=== PATIENT | male | born 1935 | race Caucasian/White ===

== ENCOUNTER 2017-05-13 11:07 | Emergency (ER) | payer MEDICARE ==
[2017-05-13 13:49] LABS: ABS Basophils 0.1 10^3/ul (0-0.2); ABS Eosinophils 0.1 10^3/ul (0-0.6); ABS Lymphocytes 1.2 10^3/ul (1.0-4.8); ABS Neutrophils 8.9 10^3/ul (1.5-7.7); ABS Nucleated RBC 0 10^3/ul; Eosinophil % 0.8 % (0-6); Hematocrit 31 % (42-52); Hemoglobin 9.9 g/dl (14.0-18.0); Lymphocyte % 10.6 % (25-47); Mean Corpuscular HGB Conc 32 g/dl (31-36); Mean Corpuscular Hemoglobin 25 pg (27-31); Mean Corpuscular Volume 78 fL (80-94); Mean Platelet Volume 7 um3 (7.4-10.4); Nucleated Red Blood Cells % 0; Platelet Count 250 10^3/ul (150-450); Red Blood Count 4.01 10^6/ul (4.0-5.4); Red Cell Distribution Width 20 % (10.5-15); White Blood Count 11.2 10^3/ul (3.5-10.8)
[2017-05-13 14:04] LABS: EGFR Non-African American 70.3 (>60)
[2017-05-13 14:06] LABS: INR 3.3 (0.77-1.02)
[2017-05-13 15:16] VITALS: BP 110/84
--- NOTE | 2017-06-01 17:44 | ED ---
Alexandre Hay Gabriel, scribed for Thomas Sherwood MD on 05/13/17 at 1236 . Lower Extremity - HPI Summary HPI Summary: This patient is a 81 year old M presenting to [facility] accompanied by with a chief complaint of LLE pain since 4 days ago. The patient rates the pain 9/10 in severity. Symptoms aggravated by movement. Patient reports erythema and swelling. Patient denies ankle pain. Patient states the symptoms started in his ankle and spread up to his knee on the left lower extremity. He saw his PCP and was Dx with gout and has been taking medications for it but it has not helped significantly. He denies any trauma, broken skin, or athletes foot. Patient denies any history of DVT's and PE's. - History of Current Complaint Chief Complaint: EDExtremityLower Stated Complaint: LEFT LEG PAIN Hx Obtained From: Patient Onset of Pain: Days - 4 Onset/Duration: Still Present Severity Initially: Moderate Severity Currently: Moderate Pain Intensity: 9 Pain Scale Used: 0-10 Numeric Timing: Constant Associated Signs And Symptoms: Positive: Swelling, Redness, Knee Pain Aggravating Factor(s): Movement Able to Bear Weight: Yes - Allergies/Home Medications Allergies/Adverse Reactions: Allergies Allergy/AdvReac Type Severity Reaction Status Date / Time bee Allergy Severe Anaphylatic Uncoded 05/13/17 11:26 Shock PMH/Surg Hx/FS Hx/Imm Hx Previously Healthy: No Endocrine/Hematology History: Reports: Hx Anticoagulant Therapy Cardiovascular History: Reports: Hx Atrial Fibrillation, Hx Coronary Artery Disease, Hx Hypercholesterolemia, Hx Hypertension, Hx Pacemaker/ICD, Other Cardiovascular Problems/Disorders - paroxysmal VT Respiratory History: Reports: Hx Sleep Apnea - hx of mild-moderate EBRTO 2008, needs equipment set up GI History: Reports: Hx Diverticulosis, Other GI Disorders - colon polyps, inguinal hernia History: Reports: Hx Benign Prostatic Hyperplasia Musculoskeletal History: Reports: Hx Back Problems - pain - Surgical History Surgery Procedure, Year, and Place: 11/2008 pacemaker Infectious Disease History: No Infectious Disease History: Denies: Traveled Outside the [place] in Last 30 Days - Family History Known Family History: Positive: Hypertension Negative: Diabetes, Seizure Disorder - Social History Lives: With Family Alcohol Use: Daily Alcohol Amount: "couple drinks a day; wine or beer, sometimes whiskey and soda" Substance Use Type: Reports: None Smoking Status (MU): Former Smoker Review of Systems Negative: Fever, Chills Musculoskeletal: Negative - left ankel Positive: Other - pain, redness, and swelling in LLE All Other Systems Reviewed And Are Negative: Yes Physical Exam - Summary Physical Exam Summary: Appearance: Well-appearing, Well-nourished Skin: Warm, Dry, No rash Eyes: Normal, PERRL, EOMI, sclera anicteric ENT: Normal Neck: Supple, nontender Respiratory: Clear to auscultation Cardiovascular: S1, S2, Afib, irregularly irregular rhythm Abdomen: Soft, nontender, no organomegaly Bowel sounds: Present Musculoskeletal: Normal, Strength/ROM Intact, no edema, pulses symmetrical, inguinal symmetry with no lymphadenopathy, there is swelling from the knee down on the left hand side with redness. There is no break in the skin even between the toes. Pulses decreased on the left LLE and there is no tenderness in the posterior calf. Neurological: Normal, A&Ox3, cranial nerves II-XII WNL, follows commands, gait not tested, sensation intact to pin and light touch Psychiatric: affect normal, behavior appropriate, dressed appropriately, judgment intact Triage Information Reviewed: Yes Vital Signs On Initial Exam: Initial Vitals Temp Pulse Resp BP Pulse Ox 97.8 F 72 15 136/65 96 05/13/17 11:24 05/13/17 11:24 05/13/17 11:24 05/13/17 11:24 05/13/17 11:24 Vital Signs Reviewed: Yes Diagnostics - Vital Signs Vital Signs Temp Pulse Resp BP Pulse Ox 05/13/17 12:05 68 98 05/13/17 12:03 141/61 05/13/17 11:24 97.8 F 72 15 136/65 96 - Laboratory Result Diagrams: 05/13/17 13:39 05/13/17 13:39 Lab Statement: Any lab studies that have been ordered have been reviewed, and results considered in the medical decision making process. - EKG 1247 Cardiac Rate: NL EKG Rhythm: Atrial Fibrillation - at 68 BPM Lower Extremity Course/Dx - Course Assessment/Plan: This patient is a 81 year old M presenting to [facility] accompanied by with a chief complaint of LLE pain since 4 days ago. The patient rates the pain 9/10 in severity. Symptoms aggravated by movement. Patient reports erythema and swelling. Patient denies ankle pain. Patient states the symptoms started in his ankle and spread up to his knee on the left lower extremity. He saw his PCP and was Dx with gout and has been taking medications for it but it has not helped significantly. He denies any trauma, broken skin, or athletes foot. An EKG reveals AFIB. Test results with no significant abnormalities except for a WBC of 11.2. Patient will be diagnosed with cellulitis and sent home. Patient will be discharged with prescription for Cephalexin and amlodipine and follow up from Dr. Lr. The patient is agreeable with this plan. - Diagnoses Provider Diagnoses: Cellulitis Discharge - Discharge Plan Condition: Good Disposition: HOME Prescriptions: amLODIPine TAB* [Norvasc 5 mg TAB*] 5 mg PO DAILY 10 Days #10 tab Cephalexin CAP* [Keflex CAP*] 500 mg PO TID 7 Days #21 cap Patient Education Materials: Cellulitis (ED) Referrals: Dillon Lr MD [Primary Care Provider] - Additional Instructions: need follow up protime in 3 days. The documentation as recorded by the Alexandre corbett Gabriel accurately reflects the service I personally performed and the decisions made by me, Thomas Sherwood MD.
== END 2017-05-13 15:15 | disposition home or self-care (01) ==
LOC: ED 11:07
DX: L03.90 Cellulitis, unspecified (principal); M25.562 Pain in left knee; Z79.01 Long term (current) use of anticoagulants; Z87.891 Personal history of nicotine dependence
CPT/HCPCS: 36415; 80053; 84550; 85025; 85610; 93005; 99282

== ENCOUNTER 2018-12-22 12:19 | Emergency (ER) | payer MEDICARE ==
[2018-12-22] MEDS ORDERED: Fluorescein Sodium TOPICAL* 1 MG TEST STRIP OPHTHALMIC ONE (12:58)
[2018-12-22 13:04] VITALS: BP 144/73
--- NOTE | 2018-12-22 13:44 | UC ---
Eye Complaint HPI - HPI Summary HPI Summary: Patient presents to urgent care with his . Patient states yesterday he woke up with no complaints. Patient states last evening he felt an itch by his eye. Patient states he can feel like there was a foreign body in his eye. Patient states subsequent to rubbing it he notices high was all "bloodshot" per his this has continued tonight. May be increased a little bit. Patient does not have a foreign body sensation. Patient does not feel like there is anything in his eye. Patient does not have any vision changes. Patient doesn' t have any eye pain. Patient have any photophobia. Patient have a headache. No trauma. Patient is on several so. Patient does not wear contact lenses but does wear corrective eyeglasses. Patient wanted to get it looked at just because it "looks bad". Patient has never had eye surgery. Last eye exam > 1 year. Pt does not recall name of optho - previously pt of Dr. Whitley several years ago Patient medications reviewed this visi - History of Current Complaint Chief Complaint: UCEye Stated Complaint: EYE COMPLAINT Time Seen by Provider: 12/22/18 13:09 Hx Obtained From: Patient Severity Initially: Mild Severity Currently: Mild Pain Intensity: 1 Pain Scale Used: 0-10 Numeric Location of Injury: Conjunctiva - Allergies/Home Medications Allergies/Adverse Reactions: Allergies Allergy/AdvReac Type Severity Reaction Status Date / Time bee Allergy Severe Anaphylatic Uncoded 12/22/18 12:53 Shock PMH/Surg Hx/FS Hx/Imm Hx Previously Healthy: Yes - on xarelto "I have a pacemaker" Endocrine History: Dyslipidemia Cardiovascular History: Hypertension, Pacemaker/ICD Other History Of: Anticoagulant Therapy - Surgical History Surgical History: Yes Surgery Procedure, Year, and Place: 11/2008 pacemaker - Social History Alcohol Use: Daily Alcohol Amount: 2.5 glasses wine/ day Substance Use Type: None Smoking Status (MU): Former Smoker Review of Systems All Other Systems Reviewed And Are Negative: Yes Constitutional: Positive: Negative Skin: Positive: Negative Eyes: Positive: Eye Redness. Negative: Blurred Vision, Diplopia, Drainage, Photophobia ENT: Positive: Negative Respiratory: Positive: Negative Cardiovascular: Positive: Negative Gastrointestinal: Positive: Negative Genitourinary: Positive: Negative Motor: Positive: Negative Neurovascular: Positive: Negative Musculoskeletal: Positive: Negative Neurological: Positive: Negative Is Patient Immunocompromised?: No Physical Exam - Summary Physical Exam Summary: Vital Signs Reviewed: Yes A+Ox3, no distress Eyes: JORDYN, EOM intact and full, left eye: subconjunctival hemorrhage left eye inferior and upper outer quadrants, no photophobia, + fundoscopic margins visualized, no papilledema, everted lids - no foreign body, evaluated with fluoroscene - no uptake mmoist no exudate, no erythema Neck: Positive: Supple Respiratory: Positive: No respiratory distress, No accessory muscle use + CTA throughout no w/r Cardiovascular: RRR nl s1, s2 no m/r CBT <2 sec, no temporal artery pain with palp abd soft + BS nt/nd no guarding, no distension Musculoskeletal Exam: NEVES x 4 without difficulty Strength Intact, ROM Intact Neurological: Positive: Alert, + sensation throughout Psychological: Positive: Normal 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 Pt states he felt like something in eye and briefly rubbed No pain, vision changes, headache, photophobia, trauma Pt is on xarelto VSS Pt with left eye subconjunctival hemorrhage exam is otherwise nonconcerning visual acuity 20/50 each eye - did not have glasses on I spoke with Dr. Whitley - Okay for pt to be discharge with f/u Monday no concern involves 3 quadrants Pt will call Monday strict return precautions discussed pt and spouse comfortable and in agreement with plan slight increased BP - history of same - Differential Dx/Diagnosis Provider Diagnosis: Subconjunctival hemorrhage of left eye Discharge - Sign-Out/Discharge Documenting (check all that apply): Patient Departure All imaging exams completed and their final reports reviewed: No Studies - Discharge Plan Condition: Stable Disposition: HOME Patient Education Materials: Subconjunctival Hemorrhage (ED) Referrals: Dillon Lr MD [Primary Care Provider] - Juan M Whitley MD [Medical Doctor] - Additional Instructions: - Avoid rubbing, itching your eye - If your eye feels dry, okay to use artificial tears in the affected eye - It is recommended you schedule a recheck with the research computing specialist on Monday- you can contact Dr. Whitley or your research computing specialist- call on Monday morning - first thing -if you develop pain, vision changes, headache, confusion or ANY other concerns it is recommended you got directly to the emergency department for a re- evaluation and further testing - the reddness may take 2 weeks to resolve completely - Billing Disposition and Condition Condition: STABLE Disposition: Home
== END 2018-12-22 13:50 | disposition home or self-care (01) ==
LOC: UCEAST 12:19
DX: H11.32 Conjunctival hemorrhage, left eye (principal); Z95.0 Presence of cardiac pacemaker; I10 Essential (primary) hypertension; Z87.891 Personal history of nicotine dependence
CPT/HCPCS: 99211; A9270-GY; G0463

== ENCOUNTER 2019-09-09 14:25 | Observation (INO) | payer MEDICARE ==
[2019-09-09] MEDS ORDERED: NS 0.9% 1000 ML** 1,000 ML IV ONE (14:41)
[2019-09-09 15:01] LABS: ABS Basophils 0.1 10^3/ul (0-0.2); ABS Eosinophils 0.3 10^3/ul (0-0.6); ABS Lymphocytes 1.2 10^3/ul (1.0-4.8); ABS Monocytes 0.7 10^3/ul (0-0.8); ABS Neutrophils 4.9 10^3/ul (1.5-7.7); Eosinophil % 3.8 %; Hematocrit 32 % (42-52); Hemoglobin 10.6 g/dL (14.0-18.0); Lymphocyte % 16.7 %; Mean Corpuscular HGB Conc 33 g/dL (31-36); Mean Corpuscular Hemoglobin 28 pg (27-31); Mean Corpuscular Volume 84 fL (80-94); Mean Platelet Volume 7.5 fL (7.4-10.4); Platelet Count 133 10^3/uL (150-450); Red Blood Count 3.76 10^6 /uL (4.18-5.48); Red Cell Distribution Width 19 % (10-15); White Blood Count 7.1 10^3/uL (3.5-10.8)
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
[2019-09-09 15:20] LABS: ALT 21 U/L (7-52); AST 25 U/L (13-39); Albumin 3.9 g/dL (3.2-5.2); Albumin/Globulin Ratio 1.4 (1-3); Alkaline Phosphatase 163 U/L (34-104); Anion Gap 10 mmol/L (2-11); BUN/Creatinine Ratio 25.3 (8-20); Blood Urea Nitrogen 47 mg/dL (6-24); CO2 Carbon Dioxide 29 mmol/L (22-32); Chloride 106 mmol/L (101-111); EGFR African American 42.3 (>60); Globulin 2.8 g/dL (2-4); Glucose 87 mg/dL (70-100); Magnesium 2.3 mg/dL (1.9-2.7); Potassium 3.9 mmol/L (3.5-5.0); Sodium 145 mmol/L (135-145); Total Protein 6.7 g/dL (6.4-8.9)
[2019-09-09 15:21] LABS: Troponin I 0.04 ng/mL (<0.03)
[2019-09-09 15:44] LABS: INR 1.56 (0.82-1.09)
[2019-09-09 16:24] LABS: Urine Appearance Clear; Urine Bilirubin Negative (Negative); Urine Blood Negative (Negative); Urine Color Yellow; Urine Glucose Negative (Negative); Urine Ketones Negative (Negative); Urine Nitrite Negative (Negative); Urine Protein Negative (Negative); Urine Specific Gravity 1.009 (1.010-1.030); Urine Urobilinogen Negative (Negative)
[2019-09-09] MEDS ORDERED: Nitroglycerin TAB 0.4 MG* 0.4 MG TAB SL PRN (16:53)
[2019-09-09] MEDS ORDERED: traMADol TAB* 50 MG PO PRN (16:53)
[2019-09-09] MEDS ORDERED: Aspirin 81 mg CHEW TAB* 81 MG TAB.CHEW PO ONE (17:22)
--- NOTE | 2019-09-09 17:35 | HP ---
History of Present Illness - History of Present Illness Reason for Visit: dizziness, diplopia, gait instability History of Present Illness: Prem Ivory is a 83 y/o male with complicated medical history including Afib on rivaroxaban, sick sinus syndrome s/p pacer, CAD, COPD, BERTO on CPAP, presented to [facility] for recurrent dizziness and unstable gait since last night, and one episode of diplopia. He was in his usual health until yesterday when he had 30min episode of dizziness and resolved on it own. Similar episode recurred this morning, and lasted for 15min, again it got better on its own. He was sent in today as he was spotted by police [place] [facility]. He went to cook for a walk with his this afternoon basically. On his way to the park, he felt dizzy again, he saw two identical cars coming into his linnea, it was laying out horizontally, no spliting of the car.When the car passed by to his left side, he realized that it was only one car. He recalled the whole episode lasted for about 5mins. He did feel imbalance when this happened, but he could still hold his steering wheel steadily, and drove to the park. When he came down walking, he felt stumbling, and his told him that he was not stable on his feet. He denied any weakness or numbness or speech abnormalities. When I saw him in ED, he felt well, no more dizziness or unsteadiness. He recently drove back from [place] 3 weeks ago, no respiratory symptoms, no fever, no positive COVID19 contact. In ED. he had negative CXR, CT brain unremarkable other than left sphenoid sinus mucous thickening. - Past Medical History Past Medical History: 1. Afib on Rivaroxaban 2. sick sinus syndrome s/p pacemaker 2008 3. HFpEF with TR, MR and pulmonary hypertension 4. h/o PSVT 5. CAD, borderline LAD lesion, 60-70% proximal to mild stenosis 6. COPD 7. HLD 8. BERTO on CPAP 9. - Past Surgical History Past Surgical History: 1. Pacemaker insertion November 2008 2. Right inguinal hernia repair October 2018 - Past Family History Past Family History: Father and brother both have lung cancer. Mother lives till age 105. - Past Social History Past Social History: Lives with her locally mainly, usually spends 3 months in [facility] every year. 4 kids, 2 kids locally. 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 non smoker, drank 2-3 glasses of wine every day, last drink this noon. No drug use. He would like full code for this hospitalization. His Celine will be his surrogate decision maker, her number [phone]. Medications: Home Medications Medication Instructions Recorded Confirmed Type Calcium Carbonate [Calcium] 600 mg PO DAILY 06/05/13 09/09/19 History Simvastatin [Zocor 40 MG (NF)] 40 mg PO BEDTIME 06/05/13 09/09/19 History Losartan Potassium [Cozaar] 100 mg PO DAILY 05/23/16 09/09/19 History Rivaroxaban TAB(*) [Xarelto 20 mg] 20 mg PO DAILY 05/24/17 09/09/19 History Tramadol 50 MG # 6 TAB PREPAK 50 mg PO Q8H PRN MDD 3 tabs 05/24/17 09/09/19 History amLODIPine TAB* [Norvasc 5 mg TAB*] 5 mg PO DAILY 12/04/18 09/09/19 History Cyanocobalamin TAB* [Vitamin B12 1,000 mcg PO DAILY 12/24/18 09/09/19 History TAB*] Metoprolol Succinate XL TAB* 50 mg PO QPM 12/24/18 09/09/19 History [Toprol XL TAB*] Multivitamins/Minerals TAB* 1 tab PO DAILY 12/24/18 09/09/19 History [Theragran/minerals TAB*] Nitroglycerin TAB 0.4 MG* 0.4 mg SL Q5M PRN 12/24/18 09/09/19 History Spironolactone TAB* [Aldactone 25 mg PO DAILY 12/24/18 09/09/19 History TAB*] Terbinafine HCl [Athletes Foot AF 1 applic TOPICAL BID PRN 12/24/18 09/09/19 History Cream] Tiotropium CAPSULE (NF) [Spiriva 1 cap.inh INH DAILY 01/08/19 09/09/19 History CAP.INH*] Ferrous Sulfate TAB* 325 mg PO DAILY 09/09/19 09/09/19 History Gabapentin CAP(*) [Neurontin 100 100 - 200 mg PO BEDTIME 09/09/19 09/09/19 History mg CAP(*)] Torsemide TAB* [Demadex*] 40 mg PO BID 09/09/19 09/09/19 History Allergies/Adverse Reactions: Allergies Allergy/AdvReac Type Severity Reaction Status Date / Time bee pollen Allergy Anaphylatic Verified 04/26/19 11:28 Shock bee venom protein (honey bee) Allergy Anaphylatic Verified 04/26/19 11:28 Shock Review of Systems - Review of Systems Constitutional: Negative: Fever, Chills, Sweats, Weakness, Malaise, Other Eyes: Positive: Other - Diplopia lasting for a few seconds ENT: Negative: Ear Pain, Ear Discharge, Nose Pain, Nose Discharge, Nose Congestion, Mouth Pain, Mouth Swelling, Throat Pain, Throat Swelling, Other Respiratory: Negative: Cough, Dry, Shortness of Breath, Hemoptysis, SOB with Excertion, Pleuritic Pain, Sputum, Wheezing Cardiovascular: Positive: Other - dizzy. Negative: Chest Pain, Palpitations, Orthopnea, Paroxysmal Noc. Dyspnea, Edema, Light Headedness Gastrointestinal: Negative: Nausea, Vomiting, Abdominal Pain, Diarrhea, Constipation, Melena, Hematochezia, Other Genitourinary: Negative: Dysuria, Frequency, Incontinence, Hematuria, Retention , Other Musculoskeletal: Negative: Neck Pain, Shoulder Pain, Arm Pain, Back Pain, Hand Pain, Leg Pain, Foot Pain, Other Skin: Negative: Rash, Lesions, Masood, Bruising, Other Neurological/Mental Status: Positive: Incoordination, Other - stumbling, imbalance. Negative: Weakness, Numbness, Change in Speech, Confusion, Seizures Exam Vital Signs: Vital Signs (72 hours) 09/09/19 09/09/19 09/09/19 14:33 14:35 14:36 Temperature 98.7 F Pulse Rate 70 70 70 Respiratory 18 18 21 Rate Blood Pressure 122/71 116/66 (mmHg) O2 Sat by Pulse 94 95 95 Oximetry 09/09/19 09/09/19 09/09/19 15:00 15:05 15:35 Temperature Pulse Rate 70 64 63 Respiratory 19 21 20 Rate Blood Pressure 125/59 131/65 (mmHg) O2 Sat by Pulse 95 Oximetry 09/09/19 09/09/19 09/09/19 16:00 16:05 16:35 Temperature Pulse Rate 61 68 Respiratory 17 22 24 Rate Blood Pressure 138/75 126/81 (mmHg) O2 Sat by Pulse Oximetry 09/09/19 16:44 Temperature Pulse Rate Respiratory Rate Blood Pressure (mmHg) O2 Sat by Pulse 94 Oximetry Result Diagrams: 09/09/19 14:53 09/09/19 14:53 Additional Lab and Data: Lab Results 09/09/19 Range/Units 14:53 WBC 7.1 (3.5-10.8) 10^3/uL RBC 3.76 L (4.18-5.48) 10^6 /uL Hgb 10.6 L (14.0-18.0) g/dL Hct 32 L (42-52) % MCV 84 (80-94) fL MCH 28 (27-31) pg MCHC 33 (31-36) g/dL RDW 19 H (10-15) % Plt Count 133 L (150-450) 10^3/uL MPV 7.5 (7.4-10.4) fL Neut % (Auto) 68.7 % Lymph % (Auto) 16.7 % [place] % (Auto) 9.7 % Eos % (Auto) 3.8 % Baso % (Auto) 1.1 % Absolute Neuts (auto) 4.9 (1.5-7.7) 10^3/ul Absolute Lymphs (auto) 1.2 (1.0-4.8) 10^3/ul Absolute Monos (auto) 0.7 (0-0.8) 10^3/ul Absolute Eos (auto) 0.3 (0-0.6) 10^3/ul Absolute Basos (auto) 0.1 (0-0.2) 10^3/ul Absolute Nucleated RBC 0.0 10^3/ul Nucleated RBC % 0.0 EKG Data: EKG: no p wave, accelerated borderline rhythm.T wave inversion inferior leads ( II, III, aVF), V4-5, it's deeper compared with previous ekg Assessment/Plan - Assessment/Plan Assessment: Prem Ivory is a 83 y/o male with complicated medical history including Afib on rivaroxaban, sick sinus syndrome s/p pacer, CAD, COPD, presented to [facility] with recurrent dizziness, diplopia, unsteady gait within last 1 day, found his symptoms self resolved and normal neurological examination, CT brain negative. He will be admitted to [facility] for close monitoring. Plan: 1. Recurrent dizziness, diplopia, unsteady gait TRO stroke - In view of his recurrent episode, self resolving neurological sxs , TIA is most likely, stroke needs to be ruled out - other DD including vertebral insufficiency, diabetic related diplopia, cardiogenic causes, hypotension - MRI brain, however we need to trace his pacer info - US carotid including vertebral artery us - add on aspirin on top of his anticoagulation - I contacted Dr. Welch neurologist circulation sales representative, who agrees with adding aspirin, and suggests to do MRI brain+ MRA; if his kidney function doesn't allow, US carotid could be alternative - already on simvastatin, last LDL 40+ in 2019 - neuro check Q6h - check A1c, lipids - PT assessment tomorrow 2. elevated troponin - EKG: T wave inversion inferior leads (II, III, aVF), V4-5, it's deeper compared with previous ekg - no chest pain, palpitation - likely due to underlying HFpEF and regurgitation - we will repeat one in 6 hours 3. thrombocytopenia - mild, will trend 4. HFpEF - continue torsemide 40mg bid, spironalactone, losartan, metoprol - not fluid overloaded 5. Afib - continue anticoagulation and metoprol 6. Sick sinus syndrome s/p pacer - not on pacer rhythm. - pacer check in view of recurrent dizziness 7. BERTO - continue CPAP in hospital at night 8. COPD - continue 9. HTN - continue home med metoprolol, losartan, torsemide - watch bp in hospital 10. chronic back pain - continue prn tramadol 11. alcohol use disorder - patient seems taking more alcohol than he told us, not really intoxicated now - last alcohol this noon - will check alcohol level 12. DVT prophylaxis - not needed as on anticoagulation Attestation Documenting Resident: Amber Malin Supervising Physician: Andres Chapa Attending/Supervising Physician Comment: Pt seen and examined. Agree with plan as outlined by Dr. Malin here. Suspected TIA. Work up will be limited by PPM. Will check carotid US, agree with neuro c/s, ASA. Checking etoh lvl and interrogate his PPM. Attestation: This service has been performed in part by a resident under the direction of a teaching physician.I, Andres Chapa, performed the service, or was physically present during the critical, or joaquin portions of the service, furnished by the resident. I participated in the management of the patient.
[2019-09-09 17:55] LABS: Alcohol 22 mg/dL (<10)
[2019-09-09] MEDS ORDERED: Metoprolol Succinate XL TAB* 25 MG PO SCH (18:00)
[2019-09-09] MEDS: Torsemide TAB* 20 MG PO SCH (20:42)
[2019-09-09] MEDS ORDERED: Atorvastatin* 20 MG TAB PO SCH (21:00)
[2019-09-09] MEDS ORDERED: Gabapentin CAP(*) 100 MG PO SCH (21:00)
[2019-09-09 21:16] LABS: Troponin I 0.04 ng/mL (<0.03)
[2019-09-10 06:02] LABS: ABS Basophils 0.1 10^3/ul (0-0.2); ABS Eosinophils 0.3 10^3/ul (0-0.6); ABS Lymphocytes 1.3 10^3/ul (1.0-4.8); ABS Monocytes 0.8 10^3/ul (0-0.8); ABS Neutrophils 3.4 10^3/ul (1.5-7.7); Eosinophil % 5.8 %; Hematocrit 31 % (42-52); Hemoglobin 10.2 g/dL (14.0-18.0); Lymphocyte % 22.4 %; Mean Corpuscular HGB Conc 33 g/dL (31-36); Mean Corpuscular Hemoglobin 28 pg (27-31); Mean Corpuscular Volume 85 fL (80-94); Mean Platelet Volume 7.8 fL (7.4-10.4); Nucleated Red Blood Cells % 0.1; Platelet Count 122 10^3/uL (150-450); Red Blood Count 3.69 10^6 /uL (4.18-5.48); Red Cell Distribution Width 18 % (10-15); White Blood Count 5.9 10^3/uL (3.5-10.8)
[2019-09-10 06:19] LABS: HDL Cholesterol 63.3 mg/dL
[2019-09-10 06:33] LABS: TSH (Thyroid Stimulating Horm) 2.2 mcIU/mL (0.34-5.60)
[2019-09-10] MEDS ORDERED: Multivitamins/Minerals TAB PO SCH (09:00)
[2019-09-10] MEDS ORDERED: Cyanocobalamin TAB* 500 MCG PO SCH (09:00)
[2019-09-10] MEDS ORDERED: Rivaroxaban TAB(*) 20 MG TAB PO SCH (09:00)
[2019-09-10] MEDS ORDERED: amLODIPine TAB* 5 MG PO SCH (09:00)
[2019-09-10] MEDS ORDERED: Calcium Carbonate TAB* 1250 MG (CALCIUM 500 MG) PO SCH (09:00)
[2019-09-10] MEDS ORDERED: Ferrous Sulfate TAB* 325 MG PO SCH (09:00)
[2019-09-10] MEDS ORDERED: Spironolactone TAB* 25 MG PO SCH (09:00)
[2019-09-10] MEDS ORDERED: Losartan TAB* 25 MG PO SCH (09:00)
--- NOTE | 2019-09-10 09:50 | PN ---
Subjective Date of Service: 09/10/19 Interval History: I noticed that his MRI was cancelled. I talked to MRI room nurse, I was told no other pacemaker brand other than [employer] will be allowed in this hospital as they need company person to come in and turn off pacer before MRI. Patient was doing well overnight, no dizziness, no more diplopia. I explained to him his blood test results. Objective Active Medications: Amlodipine Besylate (Norvasc Tab*) 5 mg PO DAILY [facility] Atorvastatin Calcium (Lipitor*) 40 mg PO BEDTIME [facility] Last Admin: 09/09/19 20:42 Dose: 40 mg Calcium Carbonate (Calcium Carbonate Tab*) 625 mg PO DAILY [facility] Cyanocobalamin (Vitamin B12 Tab*) 1,000 mcg PO DAILY [facility] Ferrous Sulfate (Ferrous Sulfate Tab*) 325 mg PO DAILY [facility] Gabapentin (Neurontin Cap(*)) 100 mg PO BEDTIME [facility] Last Admin: 09/09/19 20:43 Dose: 100 mg Losartan Potassium (Cozaar Tab*) 100 mg PO DAILY [facility] Metoprolol Succinate (Toprol Xl Tab*) 50 mg PO QPM [facility] Last Admin: 09/09/19 19:18 Dose: 50 mg Multivitamins/Minerals (Theragran/Minerals Tab*) 1 tab PO DAILY [facility] Nitroglycerin (Nitroglycerin Tab 0.4 Mg*) 0.4 mg SL Q5M PRN PRN Reason: ANGINA Rivaroxaban (Xarelto(*)) 20 mg PO DAILY [facility] Spironolactone (Aldactone Tab*) 25 mg PO DAILY [facility] Torsemide (Demadex*) 40 mg PO BID [facility] Last Admin: 09/09/19 20:42 Dose: 40 mg Tramadol HCl (Ultram*) 50 mg PO Q8H PRN PRN Reason: PAIN Vital Signs - 8 hr 09/10/19 09/10/19 09/10/19 03:02 04:00 07:22 Temperature 97.3 F 98.5 F Pulse Rate 60 60 60 Respiratory 18 16 Rate Blood Pressure 107/50 126/65 (mmHg) O2 Sat by Pulse 95 94 Oximetry Oxygen Devices in Use Now: None Exam: GEN: alert, comfortable sitting on the bed HEENT: JVP not elevated HEART: normal S1S2, RLSB soft diastolic murmur Lung: clear on auscultation Abdomen: soft, non tender Extremity: no peripheral edema Neurology: alert, oriented x4 Strength 5 over all limbs no hyperreflexia sensation normal no ataxia Babinski neg Result Diagrams: 09/10/19 05:36 09/09/19 14:53 Additional Lab and Data: Lab Results 09/09/19 Range/Units 14:53 WBC 7.1 (3.5-10.8) 10^3/uL RBC 3.76 L (4.18-5.48) 10^6 /uL Hgb 10.6 L (14.0-18.0) g/dL Hct 32 L (42-52) % MCV 84 (80-94) fL MCH 28 (27-31) pg MCHC 33 (31-36) g/dL RDW 19 H (10-15) % Plt Count 133 L (150-450) 10^3/uL MPV 7.5 (7.4-10.4) fL Neut % (Auto) 68.7 % Lymph % (Auto) 16.7 % [place] % (Auto) 9.7 % Eos % (Auto) 3.8 % Baso % (Auto) 1.1 % Absolute Neuts (auto) 4.9 (1.5-7.7) 10^3/ul Absolute Lymphs (auto) 1.2 (1.0-4.8) 10^3/ul Absolute Monos (auto) 0.7 (0-0.8) 10^3/ul Absolute Eos (auto) 0.3 (0-0.6) 10^3/ul Absolute Basos (auto) 0.1 (0-0.2) 10^3/ul Absolute Nucleated RBC 0.0 10^3/ul Nucleated RBC % 0.0 EKG Data: EKG: no p wave, accelerated borderline rhythm.T wave inversion inferior leads ( II, III, aVF), V4-5, it's deeper compared with previous ekg Assess/Plan/Problems-Billing Assessment: brandyn Ivory is a 83 y/o male with complicated medical history including Afib on rivaroxaban, sick sinus syndrome s/p pacer, CAD, COPD, presented to [facility] with recurrent dizziness, diplopia, unsteady gait within last 1 day, found his symptoms self resolved and normal neurological examination, CT brain negative, likely TIA. - Patient Problems (1) TIA (transient ischemic attack) Current Visit: Yes Status: Acute Code(s): G45.9 - TRANSIENT CEREBRAL ISCHEMIC ATTACK, UNSPECIFIED SNOMED Code(s): 777183637 Comment: - likely TIA in nature with his recurrent episode dizziness, unsteady gait, diplopia - etiology could be atherosclerotic or embolic or small vessel disease - carotid artery us unremarkable - unable to do MRI or MRA due to [place] pacer, unable to do CTA due to GFR 30+ - add aspirin on top of his anticoag - appreciate neurologist input, will discuss with them whether echo with bubble will be needed in this case - PT assessment. (2) Elevated troponin Current Visit: Yes Status: Acute Code(s): R79.89 - OTHER SPECIFIED ABNORMAL FINDINGS OF BLOOD CHEMISTRY SNOMED Code(s): 426881670 Comment: - stable, ekg changes similar to prev ekg - likely due to HFpEF (3) Thrombocytopenia Current Visit: Yes Status: Acute Code(s): D69.6 - THROMBOCYTOPENIA, UNSPECIFIED SNOMED Code(s): 135066378 Comment: - likely alcohol related - continue to monitor (4) Alcohol use disorder Current Visit: Yes Status: Acute Code(s): LHR9639 - SNOMED Code(s): 6021535 Comment: - educated on alcohol toxicity, patient felt he would be able to decrease alcohol intake - not withdrawing now Status and Disposition: Discharge after seen by neurologist
[2019-09-10] MEDS: Torsemide TAB* 20 MG PO SCH (09:54)
--- NOTE | 2019-09-10 13:25 | ECHO ---
*[facility]* [place] [address] Fax #: [phone] Transthoracic Echocardiogram Patient: Prem Ivory : 1935 Study Date: 09/10/2019 Age: 83 Gender: M HR: 60 bpm Height: 64 in /162.6 cm BSA: 1.83 m^2 Weight: 169.6 lb /77.1 kg BMI: 29.2 kg/m^2 *Taxicab Dispatcher: * Karin Crump [facility] [place] *Referring Physician: * Darshana Lang *Reading Physician: * Thompson Arnold MD Indications: TIA. History: Atrial fibrillation. Coronary artery disease. Chronic obstructive pulmonary disease. Functional status: Following treatment plan for sleep apnea. Labs, prior tests, procedures, and surgery: Permanent pacemaker system implantation. Conclusions Summary: - Left ventricle: Systolic function is normal. The estimated ejection fraction is 55-60%. Wall motion is normal; there are no regional wall motion abnormalities. - Right ventricle: Systolic pressure is moderately increased. - Ventricular septum: There is abnormal interventricular septal wall motion consistent with an RV pacemaker. - Left atrium: The atrium is severely dilated. - Atrial septum: A PFO is not demonstrated by color Doppler or agitated saline contrast. Negative Bubble Study. Images 22 and 23. - Mitral valve: There is no evidence of stenosis. There is moderate regurgitation. - Aortic valve: The findings are consistent with mild stenosis. There is trace regurgitation. The mean systolic gradient is 7.0 mm Hg. - Tricuspid valve: There is moderate-severe regurgitation. - Pericardium, extracardiac: There is no significant pericardial effusion. - Pulmonary arteries: Systolic pressure is moderately increased. - Study data: No prior study is available for comparison. Study data: Transthoracic echocardiogram. Procedure: Transthoracic echocardiography was performed. Image quality was fair. A bubble study was performed. Complete 2D, spectral Doppler, and color flow Doppler. Location: Bedside. Patient status: Inpatient. Patient room number: 432. No prior study is available for comparison. Rhythm: Paced rhythm. Findings Left ventricle: The cavity size is at the upper limits of normal. Wall thickness is mildly increased. Systolic function is normal. The estimated ejection fraction is 55-60%. Wall motion is normal; there are no regional wall motion abnormalities. There is no consistent Doppler evidence of clinically significant diastolic dysfunction. Right ventricle: The cavity size is moderately dilated. Pacer wire noted in the right ventricle. Systolic function is mildly reduced. Systolic pressure is moderately increased. Ventricular septum: There is abnormal interventricular septal wall motion consistent with an RV pacemaker. Left atrium: The atrium is severely dilated. Right atrium: The atrium is severely dilated. Pacer wire noted in right atrium. Atrial septum: A PFO is not demonstrated by color Doppler or agitated saline contrast. Negative Bubble Study. Images 22 and 23. Mitral valve: The Mitral valve annulus appears mildly calcified. The leaflets are mildly thickened. There is no evidence of stenosis. There is moderate regurgitation. Aortic valve: The valve is trileaflet. The leaflets are mildly thickened. The findings are consistent with mild stenosis. There is trace regurgitation. Tricuspid valve: The leaflets are normal thickness. There is no evidence of stenosis. There is moderate-severe regurgitation. Pulmonic valve: The leaflets are normal thickness. There is no evidence of stenosis. There is trace regurgitation. Aorta: Aortic root: The aortic root is mildly dilated. Ascending aorta: The ascending aorta is upper normal in size. Aortic arch: The aortic arch is appears normal. Pericardium: There is no significant pericardial effusion. Pulmonary arteries: The main pulmonary artery is normal-sized. Systolic pressure is moderately increased. Systemic veins: Inferior vena cava: The vessel is dilated. There is (>= 50%) respiratory change in the IVC dimension. Measurements Left ventricle Value Ref Aortic valve Value Ref TAB, LAX 5.7 cm 4.2 - 5.8 Lili diam, ED 2.1 cm ----- ESD, LAX (H) 4.3 cm 2.5 - 4.0 Lili diam/bsa, ED 1.1 cm/m^2 ----- FS, LAX 25 % 25 - 43 Peak v, S 1.9 m/sec ----- PW, ED, LAX (H) 1.2 cm 0.6 - 1.0 VTI, S 40.4 cm ----- FS (L) 24 % 25 - 43 Mean grad, S 7.0 mm Hg ----- Mid-wall FS 12 % Peak grad, S 14.0 mm Hg ----- PW, ED (H) 1.2 cm 0.6 - 1.0 LVOT/AV, VTI ratio 0.4 ----- E', lat lili, TDI (L) 9.8 cm/sec >=10.0 SAMMY, VTI 1.24 cm^2 -- --- E/e', lat lili, 13 SAMMY, Vmax 1.15 cm^2 ----- TDI E', med lili, TDI (L) 6.9 cm/sec >=7.0 Mitral valve Value Re f E/e', med lili, 18 Peak E 1.27 m/sec ----- TDI Peak A 0.29 m/sec ----- E', avg, TDI 8.4 cm/sec Decel time 162 ms ----- E/e', avg, TDI (H) 15 <=14 Peak grad, D 6.5 mm Hg -- --- Peak E/A ratio 4.4 ----- LVOT Value Ref ERO, PISA 0.14 cm^2 ----- Diam, S 2.00 cm MR vol, PISA 26 ml ----- Area 3.1 cm^2 MR fraction, PISA 34 % ----- Peak kassandra, S 0.7 m/sec VTI, S 16.0 cm Pulmonic valve Value Ref Peak grad, S 2 mm Hg Peak v, S 0.93 m/sec ----- Mean grad, S 1 mm Hg Peak grad, S 3.0 mm Hg ----- SV 51 ml SV/bsa 28 ml/m^2 Tricuspid valve Value Ref TR peak v (H) 3.4 m/sec <=2.8 Ventricular septum Value Ref Peak RV-RA grad, S 46 mm Hg ----- IVS, ED (H) 1.2 cm 0.6 - 1.0 Aortic root Value Ref Right ventricle Value Ref Root diam 3.6 cm <4.0 TAB, LAX 4.2 cm TAB minor ax, A4C (H) 4.7 cm 1.9 - 3.5 Ascending aorta Value Ref mid AAo AP diam, S 3.5 cm ----- Pressure, S 54 mm Hg Aortic arch Value Ref Left atrium Value Ref Arch diam 2.4 cm ----- AP dim, ES (H) 5.60 cm 3.00 - 4.00 Decending aorta Value Ref ML dim, A4C 5.9 cm Ivan peak kassandra 0.56 m/sec ----- SI dim, A4C 6.9 cm Vol/bsa, ES, 1-p (H) 78 ml/m^2 12 - 37 Pulmonary artery Value Ref A4C Pressure, S 51.0 mm Hg ----- Vol/bsa, ES, A/L (H) 86 ml/m^2 16 - 34 Inferior vena cava Value Ref Right atrium Value Ref Diam 2.7 cm ----- SI dim, ES (H) 7.2 cm 3.4 - 5.3 ML dim, ES, A4C (H) 4.7 cm 2.6 - 4.4 Estimated RAP 8 mm Hg Legend: (L) and (H) abdi values outside specified reference range. Prepared and electronically signed by Thompson Arnold MD 09/10/2019 13:25
[2019-09-10 14:12] VITALS: BP 137/65
[2019-09-10] MEDS ORDERED: Aspirin 81 mg CHEW TAB* 81 MG TAB.CHEW PO SCH (14:15)
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
--- NOTE | 2019-09-10 17:44 | DS ---
Resident Discharge Summary Discharge Summary: Date of Admission: 09/09/19 Date of Discharge: 09/10/19 Admitting MD: Andres Chapa MD Attending MD: Darshana Lang DO Primary Care Physician: Dillon Lr MD Home Medications Medication Instructions Recorded Confirmed Type Calcium Carbonate [Calcium] 600 mg PO DAILY 06/05/13 09/09/19 History Simvastatin [Zocor 40 MG (NF)] 40 mg PO BEDTIME 06/05/13 09/09/19 History Losartan Potassium [Cozaar] 100 mg PO DAILY 05/23/16 09/09/19 History Tramadol 50 MG # 6 TAB PREPAK 50 mg PO Q8H PRN MDD 3 tabs 05/24/17 09/09/19 History amLODIPine TAB* [Norvasc 5 mg TAB*] 5 mg PO DAILY 12/04/18 09/09/19 History Cyanocobalamin TAB* [Vitamin B12 1,000 mcg PO DAILY 12/24/18 09/09/19 History TAB*] Metoprolol Succinate XL TAB* 50 mg PO QPM 12/24/18 09/09/19 History [Toprol XL TAB*] Multivitamins/Minerals TAB* 1 tab PO DAILY 12/24/18 09/09/19 History [Theragran/minerals TAB*] Nitroglycerin TAB 0.4 MG* 0.4 mg SL Q5M PRN 12/24/18 09/09/19 History Spironolactone TAB* [Aldactone TAB 25 mg PO DAILY 12/24/18 09/09/19 History 25 MG*] Terbinafine HCl [Athlete's Foot AF] 1 applic TOPICAL BID PRN 12/24/18 09/09/19 History Tiotropium CAPSULE (NF) [Spiriva 1 cap.inh INH DAILY 01/08/19 09/09/19 History CAPSULE (NF)] Ferrous Sulfate TAB* 325 mg PO DAILY 09/09/19 09/09/19 History Gabapentin CAP(*) [Neurontin 100 100 - 200 mg PO BEDTIME 09/09/19 09/09/19 History mg CAP(*)] Torsemide TAB* [Demadex 20 MG*] 40 mg PO BID 09/09/19 09/09/19 History Aspirin 81 mg PO DAILY #30 tab.chew 09/10/19 Rx Rivaroxaban TAB(*) [Xarelto 15 15 mg PO DAILY #30 tab 09/10/19 Rx mg(*)] Medication changes: Xarelto dose was decreased to 15mg daily based on his EGFR Aspirin was newly added Disposition: Home Condition: Stable Primary Diagnosis: 1. Transient ischemic attack Secondary Diagnosis: 1. Hypertension 2. Dyslipidemia 3. Atrial fibrillation 4. Obstructive sleep apnea 5. Chronic kidney disease 6. sick sinus syndrome s/p pacemaker 2008 7. HFpEF with TR, MR and pulmonary hypertension 8. h/o PSVT 9. CAD, borderline LAD lesion, 60-70% proximal to mild stenosis Diagnostic Imaging: CT brain 09/08: no acute intracranial abnormality seen. TTE 09/09: EF 55-60%, wall motion normal, moderate mitral regurgitation, moderate to severe tricuspid regurgitation. Bubble study negative. Carotid doppler study: no pathologic elevated velocity involving the internal carotid arteries, however there is extensive plaquing in particular involving the proximal left cervical ICA with subjective significant stenosis. CTA or MRA may be considered. Pertinent Laboratory Results: Laboratory Last Values WBC 5.9 10^3/uL (3.5-10.8) 09/10/19 05:36 RBC 3.69 10^6 /uL (4.18-5.48) L 09/10/19 05:36 Hgb 10.2 g/dL (14.0-18.0) L 09/10/19 05:36 Hct 31 % (42-52) L 09/10/19 05:36 MCV 85 fL (80-94) 09/10/19 05:36 MCH 28 pg (27-31) 09/10/19 05:36 MCHC 33 g/dL (31-36) 09/10/19 05:36 RDW 18 % (10-15) H 09/10/19 05:36 Plt Count 122 10^3/uL (150-450) L 09/10/19 05:36 MPV 7.8 fL (7.4-10.4) 09/10/19 05:36 Neut % (Auto) 57.8 % 09/10/19 05:36 Lymph % (Auto) 22.4 % 09/10/19 05:36 [place] % (Auto) 13.1 % 09/10/19 05:36 Eos % (Auto) 5.8 % 09/10/19 05:36 Baso % (Auto) 0.9 % 09/10/19 05:36 Absolute Neuts (auto) 3.4 10^3/ul (1.5-7.7) 09/10/19 05:36 Absolute Lymphs (auto) 1.3 10^3/ul (1.0-4.8) 09/10/19 05:36 Absolute Monos (auto) 0.8 10^3/ul (0-0.8) 09/10/19 05:36 Absolute Eos (auto) 0.3 10^3/ul (0-0.6) 09/10/19 05:36 Absolute Basos (auto) 0.1 10^3/ul (0-0.2) 09/10/19 05:36 Absolute Nucleated RBC 0.0 10^3/ul 09/10/19 05:36 Nucleated RBC % 0.1 09/10/19 05:36 INR (Anticoag Therapy) 1.56 (0.82-1.09) H 09/09/19 14:53 Sodium 145 mmol/L (135-145) 09/09/19 14:53 Potassium 3.9 mmol/L (3.5-5.0) 09/09/19 14:53 Chloride 106 mmol/L (101-111) 09/09/19 14:53 Carbon Dioxide 29 mmol/L (22-32) 09/09/19 14:53 Anion Gap 10 mmol/L (2-11) 09/09/19 14:53 BUN 47 mg/dL (6-24) H 09/09/19 14:53 Creatinine 1.86 mg/dL (0.67-1.17) H 09/09/19 14:53 Est GFR ( Amer) 42.3 (>60) 09/09/19 14:53 Est GFR (Non-Af Amer) 35.0 (>60) 09/09/19 14:53 BUN/Creatinine Ratio 25.3 (8-20) H 09/09/19 14:53 Glucose 87 mg/dL (70-100) 09/09/19 14:53 Hemoglobin A1c 5.9 % (4.0-5.6) H 09/10/19 05:36 Lactic Acid 1.6 mmol/L (0.5-2.0) 09/09/19 14:53 Calcium 9.0 mg/dL (8.6-10.3) 09/09/19 14:53 Magnesium 2.3 mg/dL (1.9-2.7) 09/09/19 14:53 Total Bilirubin 0.70 mg/dL (0.2-1.0) 09/09/19 14:53 AST 25 U/L (13-39) 09/09/19 14:53 ALT 21 U/L (7-52) 09/09/19 14:53 Alkaline Phosphatase 163 U/L (34-104) H 09/09/19 14:53 Troponin I 0.04 ng/mL (<0.03) H* 09/09/19 20:46 B-Natriuretic Peptide 227 pg/mL (<=100) H 09/09/19 14:53 Total Protein 6.7 g/dL (6.4-8.9) 09/09/19 14:53 Albumin 3.9 g/dL (3.2-5.2) 09/09/19 14:53 Globulin 2.8 g/dL (2-4) 09/09/19 14:53 Albumin/Globulin Ratio 1.4 (1-3) 09/09/19 14:53 Triglycerides 62 mg/dL 09/10/19 05:36 Cholesterol 142 mg/dL 09/10/19 05:36 LDL Cholesterol 66 mg/dL 09/10/19 05:36 HDL Cholesterol 63.3 mg/dL 09/10/19 05:36 TSH 2.20 mcIU/mL (0.34-5.60) 09/10/19 05:36 Urine Color Yellow 09/09/19 16:07 Urine Appearance Clear 09/09/19 16:07 Urine pH 6.0 (5-9) 09/09/19 16:07 Ur Specific [place] 1.009 (1.010-1.030) L 09/09/19 16:07 Urine Protein Negative (Negative) 09/09/19 16:07 Urine Ketones Negative (Negative) 09/09/19 16:07 Urine Blood Negative (Negative) 09/09/19 16:07 Urine Nitrate Negative (Negative) 09/09/19 16:07 Urine Bilirubin Negative (Negative) 09/09/19 16:07 Urine Urobilinogen Negative (Negative) 09/09/19 16:07 Ur Leukocyte Esterase Negative (Negative) 09/09/19 16:07 Urine Glucose Negative (Negative) 09/09/19 16:07 Serum Alcohol 22 mg/dL (<10) H 09/09/19 14:53 Hospital Course: Prem Ivory is a 83 y/o male with complicated medical history including Afib on rivaroxaban, sick sinus syndrome s/p pacer, CAD, COPD, presented to [facility] with a transient episode of diplopia and unsteady gait,symptoms self resolved in minutes. Please refer to H&P dated 09/09/19 by myself for more information. Patient's symptoms resolved and neurological examination was normal after arrival in hospital. His CT brain was normal, he was unable to proceed with MRI and MRA as his pacer is not compatible; he was unable to receive CTA to look for intracranial artery stenosis due to his poor kidney function. His presentation is consistent with TIA likely from posterior circulation, and he did have multiple risk factors including Afib, age, hypertension, and dyslipidemia. He completed TIA workup including bubble study which is negative , carotid artery US which does show some subjective stenosis with no velocities changes in left ICA. He was placed on aspirin on top of his usual anticoagulation this admission. We also consulted neurologist Dr. Welch during this admission, who advised on aspirin and Xarelto as the benefits outweighs the risk of intracranial hemorrhage at this time. He also advised patient to switch to Eliquis twice daily dose and aspirin instead if he had recurrence of symptoms on this regimen since his symptoms apparently occurs prior to scheduled Xarelto dose. Patient was also advised to see a vascular surgeon outpatient for his left internal carotid artery disease. Patient was also optimized on all his primary stroke preventions. His LDL is 66 on current statin, his HbA1c 5.5%, diet control and lifestyle modifications will be needed. Alcohol cessation was advised to further decrease stroke risk. Patient was discharged stable on 09/09. He will follow up with his primary care Dr. Lr 09/22 9:20am. Follow Up Instructions: 1. Follow up with Dr. Lr 09/22 9:20am 2. See a vascular surgeon for left carotid artery disease, carotid angiogram may be needed for evaluation of his carotid disease 3. Alcohol cessation In case of an emergency or after clinic hours, please go to your nearest Emergency Department. You may also call the [facility] bolt machine operator at .
[2019-09-11] MEDS ORDERED: Rivaroxaban TAB(*) 15 MG PO SCH (09:00)
== END 2019-09-10 16:08 | disposition home or self-care (01) ==
LOC: ED 14:25 → MEDTELE 16:46
PROVIDERS: ADMIT Internal Medicine; ATTEND Internal Medicine
DX: G45.9 Transient cerebral ischemic attack, unspecified (principal); R79.89 Other specified abnormal findings of blood chemistry; I12.9 Hypertensive chronic kidney disease with stage 1 through stage 4 chronic kidney disease, or unspecified chronic kidney disease; I50.9 Heart failure, unspecified; I25.10 Atherosclerotic heart disease of native coronary artery without angina pectoris; N18.9 Chronic kidney disease, unspecified; F10.10 Alcohol abuse, uncomplicated; D69.6 Thrombocytopenia, unspecified; E78.5 Hyperlipidemia, unspecified; R94.31 Abnormal electrocardiogram [ECG] [EKG]; I49.5 Sick sinus syndrome; Z95.0 Presence of cardiac pacemaker; Z79.01 Long term (current) use of anticoagulants; Z79.899 Other long term (current) drug therapy; G47.33 Obstructive sleep apnea (adult) (pediatric); Z79.82 Long term (current) use of aspirin
CPT/HCPCS: 36415; 70450; 71045; 80053; 80061; 80320; 81003; 83036; 83605; 83735; 83880; 84443; 84484; 85025; 85610; 93005; 93306; 93880; 94660; 96360; 99285; A9270-GY; G0378; G0480

== ENCOUNTER 2019-09-13 18:11 | Emergency (ER) | payer MEDICARE ==
[2019-09-13] MEDS ORDERED: Tranexamic Acid 1,000 MG/10 ML SDV TOPICAL ONE (18:29)
--- NOTE | 2019-09-13 18:37 | ED ---
Throat Pain/Nasal Congestion - HPI Summary HPI Summary: 83 year old M presenting to [facility] with a chief complaint of intermittent epistaxis in his right nostril since two days ago. His last episode of epistaxis lasted for approximately 30 minutes. Symptoms aggravated by nothing. Symptoms alleviated by nothing. The patient is prescribed Xarelto and Aspirin. He denies any trauma. He has had nose bleeds in the past and has had a cauterization. The patient states that cotton normally stops his bleeding. Patient denies any fever, chills, erythema of eyes, sore throat, chest pain, shortness of breath, cough, abdominal pain, nausea/vomiting, dysuria, hematuria , myalgia, edema, rash, or dizziness. Medication list reviewed. Allergy list reviewed. Home Medications Medication Instructions Recorded Confirmed Type Calcium Carbonate [Calcium] 600 mg PO DAILY 06/05/13 09/09/19 History Simvastatin [Zocor 40 MG (NF)] 40 mg PO BEDTIME 06/05/13 09/09/19 History Losartan Potassium [Cozaar] 100 mg PO DAILY 05/23/16 09/09/19 History Tramadol 50 MG # 6 TAB PREPAK 50 mg PO Q8H PRN MDD 3 tabs 05/24/17 09/09/19 History amLODIPine TAB* [Norvasc 5 mg TAB*] 5 mg PO DAILY 12/04/18 09/09/19 History Cyanocobalamin TAB* [Vitamin B12 1,000 mcg PO DAILY 12/24/18 09/09/19 History TAB*] Metoprolol Succinate XL TAB* 50 mg PO QPM 12/24/18 09/09/19 History [Toprol XL TAB*] Multivitamins/Minerals TAB* 1 tab PO DAILY 12/24/18 09/09/19 History [Theragran/minerals TAB*] Nitroglycerin TAB 0.4 MG* 0.4 mg SL Q5M PRN 12/24/18 09/09/19 History Spironolactone TAB* [Aldactone TAB 25 mg PO DAILY 12/24/18 09/09/19 History 25 MG*] Terbinafine HCl [Athlete's Foot AF] 1 applic TOPICAL BID PRN 12/24/18 09/09/19 History Tiotropium CAPSULE (NF) [Spiriva 1 cap.inh INH DAILY 01/08/19 09/09/19 History CAPSULE (NF)] Ferrous Sulfate TAB* 325 mg PO DAILY 09/09/19 09/09/19 History Gabapentin CAP(*) [Neurontin 100 100 - 200 mg PO BEDTIME 09/09/19 09/09/19 History mg CAP(*)] Torsemide TAB* [Demadex 20 MG*] 40 mg PO BID 09/09/19 09/09/19 History Aspirin 81 mg PO DAILY #30 tab.chew 09/10/19 Rx Rivaroxaban TAB(*) [Xarelto 15 15 mg PO DAILY #30 tab 09/10/19 Rx mg(*)] - History of Current Complaint Chief Complaint: EDEpistaxis Hx Obtained From: Patient Onset/Duration: Still Present - Allergies/Home Medications Allergies/Adverse Reactions: Allergies Allergy/AdvReac Type Severity Reaction Status Date / Time bee pollen Allergy Anaphylatic Verified 04/26/19 11:28 Shock bee venom protein (honey bee) Allergy Anaphylatic Verified 04/26/19 11:28 Shock Home Medications: Home Medications Calcium Carbonate [Calcium] 600 mg PO DAILY 06/05/13 [History Confirmed 09/13/19 ] Simvastatin [Zocor 40 MG (NF)] 40 mg PO BEDTIME 06/05/13 [History Confirmed ] Losartan Potassium [Cozaar] 100 mg PO DAILY 05/23/16 [History Confirmed 09/13/19 ] Tramadol 50 MG # 6 TAB PREPAK 50 mg PO Q8H PRN MDD 3 tabs 05/24/17 [History Confirmed 09/13/19] amLODIPine TAB* [Norvasc 5 mg TAB*] 5 mg PO DAILY 12/04/18 [History Confirmed ] Cyanocobalamin TAB* [Vitamin B12 TAB*] 1,000 mcg PO DAILY 12/24/18 [History Confirmed 09/13/19] Metoprolol Succinate XL TAB* [Toprol XL TAB*] 50 mg PO QPM 12/24/18 [History Confirmed 09/13/19] Multivitamins/Minerals TAB* [Theragran/minerals TAB*] 1 tab PO DAILY 12/24/18 [ History Confirmed 09/13/19] Nitroglycerin TAB 0.4 MG* 0.4 mg SL Q5M PRN 12/24/18 [History Confirmed 09/13/19 ] Spironolactone TAB* [Aldactone TAB 25 MG*] 25 mg PO DAILY 12/24/18 [History Confirmed 09/13/19] Terbinafine HCl [Athlete's Foot AF] 1 applic TOPICAL BID PRN 12/24/18 [History Confirmed 09/13/19] Tiotropium CAPSULE (NF) [Spiriva CAPSULE (NF)] 1 cap.inh INH DAILY 01/08/19 [ History Confirmed 09/13/19] Ferrous Sulfate TAB* 325 mg PO DAILY 09/09/19 [History Confirmed 09/13/19] Gabapentin CAP(*) [Neurontin 100 mg CAP(*)] 100 - 200 mg PO BEDTIME 09/09/19 [ History Confirmed 09/13/19] Torsemide TAB* [Demadex 20 MG*] 40 mg PO BID 09/09/19 [History Confirmed ] Aspirin 81 mg PO DAILY #30 tab.chew 09/10/19 [Rx Confirmed 09/13/19] Rivaroxaban TAB(*) [Xarelto 15 mg(*)] 15 mg PO DAILY #30 tab 09/10/19 [Rx Confirmed 09/13/19] PMH/Surg Hx/FS Hx/Imm Hx Endocrine/Hematology History: Reports: Hx Anticoagulant Therapy Denies: Hx Diabetes Cardiovascular History: Reports: Hx Coronary Artery Disease, Hx Hypercholesterolemia, Hx Hypertension, Hx Pacemaker/ICD - [facility], Other Cardiovascular Problems/Disorders - paroxysmal VT Respiratory History: Reports: Hx Sleep Apnea - hx of mild-moderate BERTO 2008, needs equipment set up GI History: Reports: Hx Diverticulosis, Other GI Disorders - colon polyps, inguinal hernia History: Reports: Hx Benign Prostatic Hyperplasia Denies: Hx Renal Disease Musculoskeletal History: Reports: Hx Back Problems - pain Sensory History: Reports: Hx Contacts or Glasses - Reading Denies: Hx Hearing Aid Opthamlomology History: Reports: Hx Contacts or Glasses - Reading - Surgical History Surgical History: Yes Surgery Procedure, Year, and Place: [facility]- UNABLE TO HAVE MRI AT [facility]- DOES NOT MEET MR CONDITIONS Infectious Disease History: No Infectious Disease History: Denies: Traveled Outside the [place] in Last 30 Days - Social History Alcohol Use: Daily Alcohol Amount: 2.5 glasses wine/ day Substance Use Type: Reports: None Smoking Status (MU): Former Smoker Type: Cigarettes Have You Smoked in the Last Year: No Review of Systems Negative: Fever, Chills Negative: Erythema Positive: Epistaxis. Negative: Sore Throat Negative: Chest Pain Negative: Shortness Of Breath, Cough Negative: Abdominal Pain, Vomiting, Nausea Negative: dysuria, hematuria Negative: Myalgia, Edema Negative: Rash Neurological/Mental Status: Negative - Dizziness All Other Systems Reviewed And Are Negative: Yes Physical Exam - Summary Physical Exam Summary: Constitutional: Well-developed, Well-nourished, Alert. (-) Distressed Skin: Warm, Dry HENT: Right nare with a cotton ball stuck in it with an intact clot. Eyes: Conjunctiva normal Neck: Musculoskeletal ROM normal neck. (-) JVD, (-) Stridor, (-) Tracheal deviation Cardio: Rhythm regular, rate normal, Heart sounds normal; Intact distal pulses; The pedal pulses are 2+ and symmetric. Radial pulses are 2+ and symmetric. (-) Murmur Pulmonary/Chest wall: Effort normal. (-) Respiratory distress, (-) Wheezes, (-) Rales Abd: Soft, (-) tenderness, (-) Distension, (-) Guarding, (-) Rebound Musculoskeletal: (-) Edema Lymph: (-) Cervical adenopathy Neuro: Alert, Oriented x3 Psych: Mood and affect Normal Triage Information Reviewed: Yes Vital Signs On Initial Exam: Initial Vitals Temp Pulse Resp BP Pulse Ox 97.9 F 60 18 147/72 99 09/13/19 18:14 09/13/19 18:14 09/13/19 18:14 09/13/19 18:14 09/13/19 18:14 Vital Signs Reviewed: Yes Procedures - Sedation Patient Received Moderate/Deep Sedation with Procedure: No Diagnostics - Vital Signs Vital Signs Temp Pulse Resp BP Pulse Ox 09/13/19 18:14 97.9 F 60 18 147/72 99 - Laboratory Result Diagrams: 09/13/19 19:00 09/13/19 19:00 Lab Statement: Any lab studies that have been ordered have been reviewed, and results considered in the medical decision making process. EENT Course/Dx - Course Course Of Treatment: 83 year old M presenting to [facility] with a chief complaint of intermittent epistaxis in his right nostril since two days ago. His last episode of epistaxis lasted for approximately 30 minutes. Physical exam findings : Right nare with a cotton ball stuck in it with an intact clot. Laboratory results with no significant abnormalities except for an RBC of 3.65, Hgb of 10.4 , Hct of 31, RDW of 18, Plt count of 131, INR of 1.42, APTT of 40.0, BUN of 49, creatinine of 1.80, BUN/creatinine ratio of 27.2, and glucose of 107. In the ED course, applied TXA soaked gauze to his right nostril with good effect, no active bleeding at the time of discharge, no evidence of severe thrombycytopenia or anemia. Patient will be discharged with follow up from Dr. Beckwith. The patient is agreeable with this plan. - Diagnoses Provider Diagnoses: Epistaxis - Critical Care Time Critical Care Statement: Critical care time is provided exclusive of any time spent performing procedures. Discharge ED - Sign-Out/Discharge Documenting (check all that apply): Patient Departure - Discharge Plan Condition: Stable Disposition: HOME Patient Education Materials: Nosebleed (ED) Referrals: Dillon Lr MD [Primary Care Provider] - Clemente Beckwith MD [Medical Doctor] - 3 Days Additional Instructions: Follow-up with Dr. Beckwith in 2-3 days. Get nasal saline spray and apply it to both nostrils 3 times per day. Return to the emergency department for changing or worsening symptoms. - Attestation Statements Document Initiated by Scribe: Yes Documenting Scribe: Lani Hassan Provider For Whom Scribe is Documenting (Include Credential): Russell Singh MD Scribe Attestation: Lani Hay, scribed for Russell Singh MD on 09/13/19 at 2200. Status of Scribe Document: Ready
[2019-09-13 19:06] LABS: Hematocrit 31 % (42-52); Hemoglobin 10.4 g/dL (14.0-18.0); Mean Corpuscular HGB Conc 34 g/dL (31-36); Mean Corpuscular Hemoglobin 29 pg (27-31); Mean Corpuscular Volume 84 fL (80-94); Mean Platelet Volume 7.5 fL (7.4-10.4); Platelet Count 131 10^3/uL (150-450); Red Blood Count 3.65 10^6 /uL (4.18-5.48); Red Cell Distribution Width 18 % (10-15); White Blood Count 6.6 10^3/uL (3.5-10.8)
[2019-09-13 19:17] LABS: INR 1.42 (0.82-1.09)
[2019-09-13 19:20] VITALS: BP 124/69
[2019-09-13 19:26] LABS: BUN/Creatinine Ratio 27.2 (8-20); EGFR African American 43.9 (>60); EGFR Non-African American 36.3 (>60); Potassium 3.8 mmol/L (3.5-5.0)
== END 2019-09-13 19:32 | disposition home or self-care (01) ==
LOC: ED 18:11
DX: R04.0 Epistaxis (principal); Z87.891 Personal history of nicotine dependence; Z79.01 Long term (current) use of anticoagulants; I25.10 Atherosclerotic heart disease of native coronary artery without angina pectoris; E78.00 Pure hypercholesterolemia, unspecified; I10 Essential (primary) hypertension; Z95.0 Presence of cardiac pacemaker; G47.30 Sleep apnea, unspecified; Z79.82 Long term (current) use of aspirin; Z79.899 Other long term (current) drug therapy
CPT/HCPCS: 36415; 80048; 85027; 85610; 85730; 99282

== ENCOUNTER 2021-07-13 01:55 | Inpatient (IN) ==
[2021-07-13] MEDS ORDERED: Oxymetazoline 0.05% NASAL SPR 15 ML BTL BOTH NARES ONE (01:59)
[2021-07-13 03:02] LABS: Hematocrit 21 % (42-52); Hemoglobin 6.9 g/dL (14.0-18.0); Mean Corpuscular HGB Conc 33 g/dL (31-36); Mean Corpuscular Hemoglobin 29 pg (27-31); Mean Corpuscular Volume 88 fL (80-94); Mean Platelet Volume 8.4 fL (7.4-10.4); Platelet Count 23 10^3/uL (150-450); Red Blood Count 2.39 10^6 /uL (4.18-5.48); Red Cell Distribution Width 24 % (10-15); White Blood Count 0.3 10^3/uL (3.5-10.8)
[2021-07-13 03:26] LABS: Acanthocytes 1+; Anisocytosis 1+
[2021-07-13 03:27] LABS: RBC Morphology Normal (Normal); Toxic Granulation 1+
[2021-07-13 03:28] LABS: Dohle Bodies Present
[2021-07-13 03:29] LABS: ABS Lymphocytes 0.2 10^3/ul (1.0-4.8); ABS Neutrophils 0.1 10^3/ul (1.5-7.7); Eosinophil % 0.4 %; Lymphocyte % 70.8 %; Nucleated Red Blood Cells % 0.5
[2021-07-13 06:14] LABS: INR 2.21 (0.86-1.15)
[2021-07-13 06:19] LABS: Albumin 2.6 g/dL (3.2-5.2); Calcium 7.9 mg/dL (8.6-10.3); Globulin 2.5 g/dL (2-4); Potassium 4.2 mmol/L (3.5-5.0); Total Bilirubin 0.7 mg/dL (0.2-1.0); Total Protein 5.1 g/dL (6.4-8.9)
[2021-07-13 06:50] LABS: Platelet Count, Citrated 22 10^3/ul (150-450)
[2021-07-13] MEDS ORDERED: Ondansetron 4 mg VIAL 2 MG/ML 2 ml VIAL IV PRN (10:33)
[2021-07-13] MEDS ORDERED: Calcium Carb (TUMS) 500 mg CHEW TAB PO PRN (10:44)
[2021-07-13] MEDS: Diphenoxylat/Atrop 2.5-0.025mg TAB PO SCH ×3 (15:15→20:35)
[2021-07-13] MEDS: Cefepime 2 GM in Dextrose 2 GM/50 ML BAG IV SCH (17:35)
[2021-07-13 18:42] LABS: Mean Platelet Volume 9.3 fL (7.4-10.4); Platelet Count 27 10^3/uL (150-450)
[2021-07-13 22:51] LABS: Hematocrit 19 % (42-52); Hemoglobin 6.4 g/dL (14.0-18.0); Mean Corpuscular HGB Conc 34 g/dL (31-36); Mean Corpuscular Hemoglobin 30 pg (27-31); Mean Corpuscular Volume 87 fL (80-94); Mean Platelet Volume 8.5 fL (7.4-10.4); Red Blood Count 2.15 10^6 /uL (4.18-5.48); Red Cell Distribution Width 23 % (10-15); White Blood Count 0.2 10^3/uL (3.5-10.8)
[2021-07-13 22:52] LABS: Platelet Count 17 10^3/uL (150-450)
[2021-07-13 23:09] LABS: ABS Lymphocytes 0.1 10^3/ul (1.0-4.8); Eosinophil % 0.5 %; Lymphocyte % 66.7 %
[2021-07-14] MEDS ORDERED: diPHENhydraMINE 25 mg TAB PO ONE
[2021-07-14] MEDS ORDERED: diPHENhydraMINE IV 50 MG/ML 1 ml VIAL (BENADRYL) IV ONE (00:45)
[2021-07-14 06:00] LABS: ABS Lymphocytes 0.1 10^3/ul (1.0-4.8); ABS Neutrophils 0.1 10^3/ul (1.5-7.7); Eosinophil % 1.9 %; Hematocrit 22 % (42-52); Lymphocyte % 59.9 %; Mean Corpuscular HGB Conc 33 g/dL (31-36); Mean Corpuscular Hemoglobin 29 pg (27-31); Mean Corpuscular Volume 88 fL (80-94); Mean Platelet Volume 8.9 fL (7.4-10.4); Nucleated Red Blood Cells % 0.5; Platelet Count 15 10^3/uL (150-450); Red Blood Count 2.47 10^6 /uL (4.18-5.48); Red Cell Distribution Width 22 % (10-15); White Blood Count 0.2 10^3/uL (3.5-10.8)
[2021-07-14 06:11] LABS: Albumin 2.3 g/dL (3.2-5.2); Calcium 7.7 mg/dL (8.6-10.3); Globulin 2.2 g/dL (2-4); Potassium 3.6 mmol/L (3.5-5.0); Total Bilirubin 1.1 mg/dL (0.2-1.0); Total Protein 4.5 g/dL (6.4-8.9); eGFR CKD-EPI 37.2 (>60)
[2021-07-14] MEDS: Pancrelipase 5,000 units CAP PO SCH ×3 (08:28→16:21)
[2021-07-14] MEDS: Calcium (OSCAL) 500 mg TAB PO SCH (08:34)
[2021-07-14] MEDS: Diphenoxylat/Atrop 2.5-0.025mg TAB PO SCH ×4 (08:35→20:06)
[2021-07-14 11:11] LABS: Mean Platelet Volume 8.2 fL (7.4-10.4); Platelet Count 27 10^3/uL (150-450)
[2021-07-14] MEDS: Cefepime 2 GM in Dextrose 2 GM/50 ML BAG IV SCH (16:21)
[2021-07-15 05:35] LABS: Calcium 7.8 mg/dL (8.6-10.3); Potassium 3.5 mmol/L (3.5-5.0); eGFR CKD-EPI 39.5 (>60)
[2021-07-15 08:25] LABS: Hematocrit 24 % (42-52); Hemoglobin 7.8 g/dL (14.0-18.0); Mean Corpuscular HGB Conc 33 g/dL (31-36); Mean Corpuscular Hemoglobin 29 pg (27-31); Mean Corpuscular Volume 88 fL (80-94); Mean Platelet Volume 8.7 fL (7.4-10.4); Platelet Count 21 10^3/uL (150-450); Red Cell Distribution Width 22 % (10-15); White Blood Count 0.5 10^3/uL (3.5-10.8)
[2021-07-15] MEDS: Calcium (OSCAL) 500 mg TAB PO SCH (08:36)
[2021-07-15] MEDS: Diphenoxylat/Atrop 2.5-0.025mg TAB PO SCH ×4 (08:36→20:29)
[2021-07-15] MEDS: Pancrelipase 5,000 units CAP PO SCH ×3 (08:36→16:45)
[2021-07-15 11:23] LABS: ABS Lymphocytes 0.3 10^3/ul (1.0-4.8); ABS Monocytes 0.1 10^3/ul (0-0.8); ABS Neutrophils 0.1 10^3/ul (1.5-7.7); Eosinophil % 1.4 %; Lymphocyte % 59.4 %; Nucleated Red Blood Cells % 1.6
[2021-07-15] MEDS: Cefepime 2 GM in Dextrose 2 GM/50 ML BAG IV SCH (16:45)
[2021-07-16 06:22] LABS: ABS Lymphocytes 0.4 10^3/ul (1.0-4.8); ABS Monocytes 0.1 10^3/ul (0-0.8); ABS Neutrophils 0.7 10^3/ul (1.5-7.7); Eosinophil % 2.2 %; Hematocrit 26 % (42-52); Hemoglobin 8.1 g/dL (14.0-18.0); Lymphocyte % 31.8 %; Mean Corpuscular HGB Conc 32 g/dL (31-36); Mean Corpuscular Hemoglobin 29 pg (27-31); Mean Corpuscular Volume 91 fL (80-94); Mean Platelet Volume 10.3 fL (7.4-10.4); Nucleated Red Blood Cells % 0.5; Platelet Count 37 10^3/uL (150-450); Red Blood Count 2.81 10^6 /uL (4.18-5.48); Red Cell Distribution Width 22 % (10-15); White Blood Count 1.2 10^3/uL (3.5-10.8)
[2021-07-16] MEDS: Calcium (OSCAL) 500 mg TAB PO SCH (08:14)
[2021-07-16] MEDS: Diphenoxylat/Atrop 2.5-0.025mg TAB PO SCH ×2 (08:14→13:44)
[2021-07-16] MEDS: Pancrelipase 5,000 units CAP PO SCH ×2 (08:16→13:49)
[2021-07-16 12:34] VITALS: BP 99/37
== END 2021-07-16 14:15 | disposition hospice, home (50) | DRG 809 ==
LOC: ED 01:55 → EDHOLD 01:55 → MEDTELE 12:11
PROVIDERS: ADMIT Internal Medicine Hematology & Oncology; ATTEND Internal Medicine Hematology & Oncology